=== PATIENT | female | born 1980 | race Caucasian/White ===

== ENCOUNTER 2016-09-09 12:28 | Emergency (ER) | payer OTHER ==
[~2016-09-09] VITALS: Ht 167.6 cm; Wt 76.7 kg
[2016-09-09] MEDS ORDERED: VARE1TA PO (13:07)
[2016-09-09] MEDS ORDERED: LYRI150C PO (13:07)
[2016-09-09] MEDS ORDERED: KETOROLAC 60 MG/2 ML VIAL (J1885) IM ONE (13:30)
--- NOTE | 2016-09-09 14:12 | REP ---
LEFT KNEE, FIVE VIEWS: HISTORY: Injury. There is no acute fracture or dislocation. The joint spaces are normal in appearance. IMPRESSION: There is no acute fracture or dislocation. Signed by Gold Ryan MD 09/09/2016 02:16 P
[2016-09-09] MEDS ORDERED: NORCOTAB PO ×2 (14:30→14:33)
[2016-09-09] MEDS ORDERED: NAPR500T PO (14:30)
[2016-09-09 14:36] VITALS: BP 144/80
== END 2016-09-09 14:44 | disposition home or self-care (01) ==
LOC: M ED 13:38
DX: M23.92 Unspecified internal derangement of left knee (principal); E11.9 Type 2 diabetes mellitus without complications; F41.9 Anxiety disorder, unspecified; F33.9 Major depressive disorder, recurrent, unspecified; Z79.899 Other long term (current) drug therapy; Z88.0 Allergy status to penicillin; Z88.8 Allergy status to other drugs, medicaments and biological substances; F17.210 Nicotine dependence, cigarettes, uncomplicated
CPT/HCPCS: 73564; 96372; 99283; J1885

== ENCOUNTER 2017-01-27 11:15 | Emergency (ER) | payer OTHER ==
[~2017-01-27] VITALS: Ht 167.6 cm; Wt 74.5 kg
[~2017-01-27 11:15] MED LIST: LYRI150C PO; NAPR500T PO; NORCOTAB PO; VARE1TA PO
[2017-01-27] MEDS ORDERED: CLIN150C14 PO (11:29)
[2017-01-27] MEDS ORDERED: CYMB1CAP5 PO (11:29)
[2017-01-27] MEDS ORDERED: VITA1TAB9 PO (11:29)
[2017-01-27] MEDS ORDERED: OMEP10CASR PO (11:29)
[2017-01-27 12:45] VITALS: BP 129/68
[2017-01-27 12:54] LABS: URIC ACID, BODY FLUID 2.5 MG/DL (NOT ESTABLISHED)
[2017-01-27 12:58] LABS: RBC BODY FLUID < 2000 10^3/uL (<2000)
[2017-01-27 13:10] LABS: WBC BODY FLUID 35880 /uL (0-10)
[2017-01-27 13:11] LABS: BF MONONUCLEAR CELL % 6.9 % (0-0); BF POLYMORPHONUCLEAR CELL % 93.1 % (0-0)
[2017-01-27 13:14] LABS: SYNOVIAL FLUID COLOR YELLOW (YELLOW)
[2017-01-27 13:15] LABS: BF DIFF IF INDICATED? YES (NO)
[2017-01-27 14:00] LABS: CRYSTALS, BODY FLUID NONE SEEN (NONE SEEN)
[2017-01-28] MEDS ORDERED: ESOMEPRAZOLE PO (06:34)
[2017-01-28] MEDS ORDERED: VARE05TA PO (06:34)
== END 2017-01-27 12:46 | disposition home or self-care (01) ==
LOC: M ED 11:15
DX: M25.562 Pain in left knee (principal); E11.9 Type 2 diabetes mellitus without complications; Z79.899 Other long term (current) drug therapy; Z88.0 Allergy status to penicillin; Z88.8 Allergy status to other drugs, medicaments and biological substances

== ENCOUNTER 2017-01-27 13:52 | Inpatient (IN) | payer OTHER ==
[~2017-01-27] VITALS: Ht 167.6 cm; Wt 76.6 kg
[~2017-01-27 13:52] MED LIST changes: +CLIN150C14 PO; +CYMB1CAP5 PO; +OMEP10CASR PO; +VITA1TAB9 PO
[2017-01-27] MEDS ORDERED: ONDANSETRON 4MG/2ML VIAL (J2405) IV PRN ×2 (15:45→19:45)
[2017-01-27 16:30] VITALS: BP 113/73
[2017-01-27 16:47] LABS: CONTROL LINE UCG INT CTR LINE PRESENT
--- NOTE | 2017-01-27 17:03 | HPEPDOC ---
General Date of Admission 01/27/2017 Attending Physician: JUDITH BUENO MD Chief Complaint The patient is a 36-year-old female admitted with a reason for visit of Left Knee Septic Arthritis. Source: Patient Exam Limitations: No limitations Timing/Duration: Week(s), Getting worse Severity: Moderate Associated Symptoms: Fever, Chills, Nausea, Vomiting History of Present Illness Patient is a 36 y/o female who is 3 months s/p L knee ACO reconstruction with MM repair DOS 05 November 2016. Patient had an uneventful postoperative course until 2 weeks ago when she noticed an increase in L knee pain, generalized nausea and vomiting, and some drainage from her medial tibial wound, which resolved spontaneously. She then developed increasing pain and erythema on the anterior aspect of the patients leg. She was given oral clindamycin 3 days ago and presented to my office for routine follow up. She had increased pain and swelling and went to the [facility] ER yesterday where she was given a dose of IV antibiotics and discharged home. Today, she reports worsening knee pain and swelling. Home Medications Scheduled (Vitamelts Vitamin D) 1,000 Unit Tab, 1,000 UNIT PO DAILY, (Reported) Clindamycin Hcl (Clindamycin HCl) 150 Mg Cap, 300 MG PO Q6H, (Reported) Duloxetine Hcl (Cymbalta) 30 Mg Cap, 30 MG PO DAILY, (Reported) Omeprazole (PriLOSEC) 10 Mg Capcr, 10 MG PO DAILY, (Reported) Varenicline (Chantix) 1 Mg Tab, 2 MG PO BID, (Reported) Scheduled PRN Acetaminophen/Hydrocodone ([place], Anexsia 5/325) 1 Tab Tab, 1 TAB PO Q6H PRN for PAIN Allergies Coded Allergies: Penicillins (Verified Allergy, Severe, anaphylaxis, 09/09/16) Gabapentin (Verified Allergy, Intermediate, hives, 09/09/16) Sertraline (Verified Allergy, Intermediate, seratonin syndrome, 01/27/17) Past Medical History Medical History Depression, Anxiety, GERD Surgical History L knee ACL reconstruction per HPI Ear surgery, Cholecystectomy appendectomy partial hysterectomy Social History * Smoker: Denies, current smoker Alcohol: Denies Drugs: denies Recent Travel/Sick Contacts: Denies: Recent travel, Recent sick contacts Psychosocial History: Anxiety, Depression Art student Review of Symptoms Constitutional: Reports: Chills, Fever, Malaise, Night Sweats, Weakness, Fatigue, Weight Loss, Lethargy, Other Eyes: Denies: Pain, Vision change, Conjunctivae inflammation, Eyelid inflammation, Redness, Other ENT: Denies: Head Aches, Ear Pain, Dysphagia, Sinus Congestion, Post Nasal Drip , Sore Throat, Epistaxis, Other Symptoms Skin: Denies: Rash, Lesions, Jaundice, Bruising, Itching, Dry, Breakdown, Nail Changes, Other Pulmonary: Denies: Dyspnea, Cough, Pleuritic Chest Pain, Other Symptoms Cardiovascular: Denies: Chest Pain, Palpitations, Orthopnea, Paroxysmal Noc. Dyspnea, Edema, Lt Headedness, Other Symptoms Gastrointestinal: Reports: Nausea, Vomiting, Abdominal Pain, Diarrhea, Constipation, Melena, Hematochezia, Other Symptoms Genitourinary: Denies: Dysuria, Frequency, Incontinence, Hematuria, Retention, Other Symptoms Hematologic: Denies: Bruising, Bleeding Excessively, Petecchia, Purpura, Enlarged Lymph Nodes, Other Hematologic Endocrine: Denies: Polydipsia, Polyphagia, Polyuria, Heat Intolerance, Cold Intolerance, Other Endocrine Sx Musculoskeletal: Reports: Neck Pain, Back Pain, Shoulder Pain, Arm Pain, Hand Pain, Leg Pain (L knee and leg pain per HPI), Foot Pain, Joint Pain, Muscle Pain , Spasms, Other Symptoms Neurological: Denies: Weakness, Numbness, Incoordination, Change in speech, Confusion, Seizures, Other Symptoms Psych: Denies: Mood Normal, Anxiety, Depression, Memory Issues, Thoughts of Self Harm, Anger, Thoughts of Harming Other, Other Psych Physical Examination General Exam: Positive: Alert, Cooperative, No Acute Distress Eye Exam: Positive: PERRLA ENT Exam: Positive: Atraumatic Chest Exam: Positive: Normal air movement Heart Exam: Positive: Rate Normal Extremity Exam: Positive: Tenderness (L knee exam demonstrates mild effusion. There is pain with axial load of the L knee. Pain with passive knee ROM. No drainage from wounds. ) Vital Signs T98.3 HR 74 RR 18 Laboratory Data Labs 24H Labs at [facility] from yesterday Jan 17: WBC 15.3 ESR 33 CRP 15 Knee aspirate today: WBC 57390, 93.1% PMNs Gram stain pending Assessment/Plan 36 y/o female with post op septic knee arthritis/surgical site infection Plan / VTE VTE Prophylaxis Ordered?: Yes Plan Plan Given the patients constellation of findings, namely increasing knee pain with pain with axial load and relatively high cell count with high differential, i discussed with the patient the risks, benefits, indications, and alternatives of observation versus operative arthroscopic irrigation and debridement with open I&D of medial tibial wound. The patient expressed understanding and provided informed consent for L knee I&D. She will be admitted for surgery tonight and remain in the hospital on IV antibiotics pending culture results. Diet: Make NPO Activity: Bedrest Anticipated Discharge: Home With Services JUDITH BUENO MD Jan 27, 2017 15:41
[2017-01-27] MEDS ORDERED: ROPIvacaine 0.5% 30 ML INJECTION (J2795) As Ordered ONE (17:12)
[2017-01-27] MEDS ORDERED: MIDAZOLAM INJ 2 MG/2 ML VIAL (J2250) As Ordered ONE (17:45)
[2017-01-27] MEDS ORDERED: LIDOCAINE 2% INJ 100 MG/5 ML SDV (FOR ANES.) As Ordered ONE (17:45)
[2017-01-27] MEDS ORDERED: PROPOFOL 200 MG/20 ML VIAL As Ordered ONE (17:45)
[2017-01-27] MEDS ORDERED: fentaNYL 100 MCG/2 ML INJECTION (J3010) As Ordered ONE ×3 (17:45→20:06)
[2017-01-27] MEDS ORDERED: ROCURONIUM BROMIDE 50 MG/5 ML VIAL/SYRINGE As Ordered ONE (17:46)
[2017-01-27] MEDS ORDERED: dexameTHASONE 4 MG/ML 1ML VIAL (J1100) As Ordered ONE (17:46)
[2017-01-27] MEDS ORDERED: SUCCINYLCHOLINE 100 MG/5 ML SYRINGE (J0330) As Ordered ONE (17:46)
[2017-01-27] MEDS ORDERED: VANCOMYCIN 1000 MG/20 ML VIAL (J3370) As Ordered ONE (17:49)
[2017-01-27] MEDS ORDERED: MEPERIDINE INJ 25 MG/ML VIAL (J2175) As Ordered ONE (19:30)
[2017-01-27] MEDS ORDERED: NORCO, ANEXSIA 5/325MG TABLET (HYDROcodone/ACETAMINOPHEN) PO PRN (19:45)
[2017-01-27] MEDS ORDERED: MEPERIDINE INJ 25 MG/ML VIAL (J2175) IV PRN (19:45)
[2017-01-27] MEDS ORDERED: LR 1,000 ML IV SCH (19:45)
[2017-01-27] MEDS: VANCOMYCIN HCL 1,000 MG, VIAL MATE ADAPTER 1 EACH in D5W 250 ML IV SCH (20:00)
[2017-01-27] MEDS ORDERED: PERCOCET 5MG/325MG TAB As Ordered ONE (20:00)
[2017-01-27] MEDS: fentaNYL 100 MCG/2 ML INJECTION (J3010) IV PRN ×2 (20:09→20:16)
--- NOTE | 2017-01-27 20:48 | RO ---
DATE OF PROCEDURE: 01/27/2017 PREPROCEDURE DIAGNOSIS: Left knee septic arthritis. POSTPROCEDURE DIAGNOSIS: Left knee septic arthritis. PROCEDURE: Left knee arthroscopic and open irrigation and debridement. SURGEON: Dr. Ricky Sanchez [employer] BROADCASTER: MERLYN Cox ANESTHESIA PROVIDER: Dr. Melchor ANESTHESIA GIVEN: General endotracheal anesthesia. ANTIBIOTICS: 1 gram of intravenous (IV) vancomycin given after cultures taken. MATERIALS SENT TO LAB: Medial tibial wound culture swab and intraarticular synovial tissue per culture. ESTIMATED BLOOD LOSS: 25 mL. COMPLICATIONS: None. INDICATION FOR PROCEDURE: Kaylee Monaco is a 36-year-old female who is 3 months status post left knee anterior cruciate ligament (ACL) reconstruction with allograft. Date of surgery was 11/05/2016. The patient had an uneventful postoperative course until approximately 2 weeks ago where she has had general malaise and increasing pain in the left lower extremity. She was seen a few days ago by another provider and placed on oral clindamycin. She was then seen by me in the office where she had increasing pain about the left knee. She had pain with axial load. She had pain with passive knee range of motion. She had an effusion. I obtained a synovial fluid sample and sent it to the lab and cell count was 36,000 white blood cells with 93% neutrophils. She had labs showing elevated erythrocyte sedimentation rate (ESR), C-reactive protein (CRP) and white count. Given this constellation of findings, I discussed with the patient the risks, benefits, indications and alternatives of operative versus nonoperative treatment of presumed septic arthritis and recommended operative irrigation and debridement. The patient expressed understanding with these findings and elected to proceed. Informed consent was obtained. INTRAOPERATIVE FINDINGS: Patient's exam under anesthesia revealed negative pivot-shift and a 2A Yousif with a solid endpoint. Diagnostic arthroscopy revealed extensive synovitis throughout the knee with anterior interval scarring. There was no purulence expressed from the medial tibial wound or from the knee joint. The anterior cruciate ligament (ACL) graft was mostly intact with some mild fraying of the anterior aspect of the graft. The meniscal repair appears to have healed. There were no new medial or lateral meniscal tears. There was some grade 2 chondromalacia on the lateral tibial plateau. No other focal cartilaginous defects. There was significant scarring and synovitis in the medial gutter, lateral gutter and suprapatellar pouch. DESCRIPTION OF PROCEDURE: The patient was positively identified in the preoperative holding area. The surgical site was marked. She was then brought to the operating room where she was placed under general endotracheal anesthesia. I then performed the exam under anesthesia with the above noted findings. She was then prepped and draped in the usual sterile fashion. A final time-out was performed. I began by making an incision over the medial proximal tibial over the previous graft insertion site, dissected through the skin and subcutaneous tissue and identified the deep fascial layer. No purulence was expressed in this layer. Culture swabs were taken and sent to the lab for aerobic and anaerobic cultures from this wound. I then thoroughly irrigated this wound with normal saline, closed the incision with simple interrupted nylon suture and then placed an occlusive dressing over this area in preparation for irrigation and debridement of the joint. Everybody put on clean gloves and then a fresh knife was used to go through the previous lateral arthroscopy portal. I then identified a large amount of anterior interval scarring. I then used a combination of shaver and electrocautery to debride some of the anterior interval scarring for visualization. I performed the diagnostic arthroscopy with above findings. There was significant synovitis throughout the entire knee. Samples of synovial tissue were taken with a pituitary rongeur and sent to the lab for a tissue culture. I then performed a synovectomy using a combination of shaver and cautery. After completion of the synovectomy, approximately 12 liters of saline was irrigated through the knee. Final arthroscopic photos were taken, instruments were removed, the effusion was evacuated. The arthroscopy portals were closed with simple interrupted nylon suture. Sterile dressings were applied. This ended the procedure. I was present and scrubbed in for all critical portions of the case. POSTOPERATIVE PLAN: The patient will be admitted to the hospital for IV antibiotics. Infectious disease service will be consulted. The patient will remain on IV antibiotics pending culture results and will be discharged home when antibiotic regimen has been determined. DINO
[2017-01-27 20:50] VITALS: BP 124/66
[2017-01-27 21:20] VITALS: BP 121/71
[2017-01-27 21:50] VITALS: BP 116/61
[2017-01-27] MEDS: DOCUSATE SODIUM 100 MG CAP PO SCH (22:16)
[2017-01-27] MEDS: KETOROLAC 30 MG/ML VIAL (J1885) IV PRN (22:16)
[2017-01-27 22:40] LABS: CREATININE FOR GFR 0.63 MG/DL (0.55-1.02); GLOMERULAR FILTRATION RATE > 60.0 (>60)
[2017-01-27 23:00] VITALS: BP 128/57
[2017-01-28] VITALS (8 sets, daily range): BP systolic 105–116; BP diastolic 54–62
[2017-01-28] MEDS: PERCOCET 5MG/325MG TAB PO PRN ×4 (02:11→20:36)
[2017-01-28] MEDS: VANCOMYCIN HCL 1,000 MG, VIAL MATE ADAPTER 1 EACH in D5W 250 ML IV SCH ×3 (04:15→20:36)
[2017-01-28] MEDS ORDERED: VARE05TA PO (06:34)
[2017-01-28] MEDS ORDERED: ESOMEPRAZOLE PO (06:34)
[2017-01-28] MEDS: ENOXAPARIN 40 MG/0.4 ML SYRINGE (J1650) SC SCH (09:30)
[2017-01-28] MEDS: DOCUSATE SODIUM 100 MG CAP PO SCH ×2 (09:30→20:36)
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
--- NOTE | 2017-01-28 15:22 | REP ---
PICC LINE INSERTION: The patient was referred for PICC line insertion. Informed consent was obtained. Under sterile conditions and after satisfactory administration of local anesthesia, using guidance from the [facility] [place] ultrasound device, access to the right basilic vein is obtained. Over a wire, a single lumen PICC line is inserted and the tip is positioned in the superior vena cava using fluoroscopy. The wire was removed and hemostasis obtained with no immediate complication. 0.1 minutes fluoroscopy time utilized. Signed by Burton Lindsey MD 01/31/2017 09:53 A
--- NOTE | 2017-01-28 16:49 | IPNPDOC ---
Date Seen The patient was seen on 01/28/17. Progress Note SUBJECTIVE: Patient is a 36-year-old female POD1 s/p L knee I&D for septic arthritis s/p ACL reconstruction 05 Nov 2016. Patient seen and examined at bedside. No acute overnight events. Patient feels much better today and has felt better since immediately after surgery. She Has had a PICC line placed. No acute overnight events. OBJECTIVE PHYSICAL EXAMINATION: VITAL SIGNS: Please see below. GENERAL: Well nourished female, NAD HEENT: Normocephalic, atraumatic CARDIOVASCULAR: 2+ DP/PT pulse, BCR all digits LLE. RESPIRATORY: non-labored breathing. EXTREMITIES: L knee dressing in place, c/d/i. Patient with knee ROM 0-90. No pain with axial load. Able to perform SLR without pain. MICROBIOLOGY: Please see below. DVT prophylaxis ordered?: Lovenox ASSESSMENT: This is a 36 y/o female POD1 s/p L knee I&D feeling much better PLAN: -Continue IV vancomycin, appreciate ID recommendations -Will continue to follow cultures -WBAT LLE -May ambulate without assistance -PT for ambulation -PICC placed, will likely discharge home Tuesday after abx regimen has been determined -CRP tomorrow to evaluate response to treatment VS, I&O, 24H, Fishbone Vital Signs/I&O Vital Signs Date Time Temp Pulse Resp B/P (MAP) Pulse Ox O2 Delivery O2 Flow Rate FiO2 01/28/17 16:00 98.3 84 18 112/59 (76) 99 Room Air 01/27/17 19:27 2 I&O- Last 24 Hours up to 6 AM 01/29/17 06:00 Intake Total 480 ml Output Total 400 ml Balance 80 ml Laboratory Data 24H LABS Laboratory Tests 2 01/27/17 21:56: Glomerular Filtration Rate > 60.0 CBC/BMP Laboratory Tests 01/27/17 21:56 Microbiology Microbiology 01/28/17 MRSA Screen, Received Pending 01/27/17 Wound Culture, Received Pending 01/27/17 Anaerobic Culture, Received Pending 01/27/17 Wound Culture, Received Pending 01/27/17 Anaerobic Culture, Received Pending JUDITH BUENO MD Jan 28, 2017 16:49
--- NOTE | 2017-01-28 21:56 | CR ---
DATE OF CONSULTATION: 01/28/2017 Asked to consult by Dr. Sanchez for evaluation of septic arthritis. This is an addendum to the consultation done by ID resident, Dr. Victor . The patient was admitted on January 27 with left knee septic arthritis. She underwent an arthroscopic irrigation and debridement of the left knee after she was diagnosed with septic arthritis. The patient had undergone a left knee anterior cruciate ligament reconstruction with allograft on 11/05/2016. She had an uneventful course until about 2 weeks prior to admission, when she developed some drainage and swelling from the inferior aspect of the knee. She was seen by her doctor on Tuesday. Culture was not done, but she was started on clindamycin on January 24, she took for a couple of days. On January 26 she went to the emergency room at [facility] with a fever of 103.5 and was given intravenous (IV) antibiotics. She was seen the morning of admission by Dr. Sanchez, who admitted her for an incision and drainage. He had obtained synovial fluid sample that had 36,000 white cells with 93% neutrophils. She had an elevated sedimentation rate and C-reactive protein (CRP), and therefore a diagnosis of septic arthritis was made, and the patient was admitted to the hospital. She has been started on IV vancomycin after incision and drainage cultures are still pending from last night. The patient feels better. The plan will be to treat her for septic arthritis for total of 3-4 weeks of IV antibiotics. Depending on results of culture, if Staphylococcus aureus, it would be a total of 4 weeks. If other than Staphylococcus aureus, a total of 3 weeks. A peripherally inserted central catheter (PICC) line was ordered. The patient has a vague history of a facial abscess about a year ago that was not cultured, and methicillin-resistant Staphylococcus aureus (MRSA) screen will be done as well to see if she is MRSA colonized. Thank you for consultation. Monitor complete blood count (CBC), basic, CRP, vancomycin trough weekly as an outpatient. Will consult [facility] for home IV antibiotics once I have an idea of what IV antibiotic she will be on. [facility] CENTERAziza
[2017-01-29 04:00] VITALS: BP 115/57
[2017-01-29] MEDS: VANCOMYCIN HCL 1,000 MG, VIAL MATE ADAPTER 1 EACH in D5W 250 ML IV SCH ×3 (04:00→20:08)
[2017-01-29] MEDS: PERCOCET 5MG/325MG TAB PO PRN ×4 (05:32→19:06)
[2017-01-29] MEDS: SODIUM CHLORIDE 0.9% INJ 10 ML SYR IV SCH ×2 (05:59→18:13)
[2017-01-29 06:33] LABS: BASO # 0.1 10^3/uL (0.0-0.2); BASO % 0.8 % (0.0-1.0); IMMATURE GRANULOCYTE % 0.3 % (0-0); LYMPH # 2.5 10^3/uL (1.5-4.5); LYMPH % 33.2 % (24.0-44.0); MEAN CORPUSCULAR HEMOGLOBIN 32.6 pg (27.0-33.0); MEAN CORPUSCULAR HGB CONC 34.9 g/dl (32.0-36.5); MEAN CORPUSCULAR VOLUME 93.2 fl (80.0-96.0); MONO # 0.6 10^3/uL (0.0-0.8); MONO % 7.6 % (0.0-5.0); NEUTROPHILS # 4.4 10^3/uL (1.8-7.7); NEUTROPHILS % 58.1 % (36.0-66.0); PLATELET COUNT, AUTOMATED 251 10^3/uL (150-450); RED CELL DISTRIBUTION WIDTH 11.9 % (11.5-14.5); WHITE BLOOD COUNT 7.5 10^3/uL (4.0-10.0)
[2017-01-29 06:44] LABS: ANION GAP 4 MEQ/L (8-16); BLOOD UREA NITROGEN 5 MG/DL (7-18); CALCIUM LEVEL 8.3 MG/DL (8.5-10.1); CARBON DIOXIDE LEVEL 29 MEQ/L (21-32); CHLORIDE LEVEL 108 MEQ/L (98-107); CREATININE FOR GFR 0.65 MG/DL (0.55-1.02); GLOMERULAR FILTRATION RATE > 60.0 (>60); GLUCOSE, FASTING 82 MG/DL (70-105); POTASSIUM SERUM 3.5 MEQ/L (3.5-5.1); SODIUM LEVEL 141 MEQ/L (136-145)
[2017-01-29 06:53] LABS: ERYTHROCYTE SEDIMENTATION RATE 31 mm/hr (0-20)
[2017-01-29 08:00] VITALS: BP 113/60
[2017-01-29] MEDS: CHANTIX STARTER PACK PO SCH ×2 (09:43→20:08)
[2017-01-29] MEDS: DOCUSATE SODIUM 100 MG CAP PO SCH ×2 (09:43→20:07)
[2017-01-29] MEDS: ENOXAPARIN 40 MG/0.4 ML SYRINGE (J1650) SC SCH (09:44)
--- NOTE | 2017-01-29 12:39 | IPNPDOC ---
Date Seen The patient was seen on 01/29/17. Progress Note SUBJECTIVE: Patient is a 36-year-old female POD2 s/p L knee I&D for septic arthritis s/p ACL reconstruction 05 Nov 2016. Patient seen and examined at bedside. No acute overnight events. Pain well controlled. She Has had a PICC line placed yesterday. No complaints. OBJECTIVE PHYSICAL EXAMINATION: VITAL SIGNS: Please see below. GENERAL: Well nourished female, NAD HEENT: Normocephalic, atraumatic CARDIOVASCULAR: 2+ DP/PT pulse, BCR all digits LLE. RESPIRATORY: non-labored breathing. EXTREMITIES: L knee dressing in place, c/d/i. Patient with knee ROM 0-90. No pain with axial load. Able to perform SLR without pain. MICROBIOLOGY: Please see below. Cultures finalized NGTD CRP downtrending. 0.5 today DVT prophylaxis ordered?: Lovenox ASSESSMENT: This is a 36 y/o female POD2 s/p L knee I&D with culture negative septic knee arthritis. PLAN: -Continue IV vancomycin, appreciate ID recommendations regarding type and duration of abx treatment -WBAT LLE -May ambulate without assistance -PT for ambulation -PICC placed, will likely discharge home Tuesday after abx regimen has been determined VS, I&O, 24H, Fishbone Vital Signs/I&O Vital Signs Date Time Temp Pulse Resp B/P (MAP) Pulse Ox O2 Delivery O2 Flow Rate FiO2 01/29/17 10:20 18 01/29/17 08:00 98.9 73 113/60 (77) 95 Room Air 01/27/17 19:27 2 Laboratory Data 24H LABS Laboratory Tests 2 01/29/17 06:02: Immature Granulocyte % (Auto) 0.3H, White Blood Count 7.5, Red Blood Count 3.10L , Hemoglobin 10.1L, Hematocrit 28.9L, Mean Corpuscular Volume 93.2, Mean Corpuscular Hemoglobin 32.6, Mean Corpuscular Hemoglobin Concent 34.9, Red Cell Distribution Width 11.9, Platelet Count 251, Neutrophils (%) (Auto) 58.1, Lymphocytes (%) (Auto) 33.2, Monocytes (%) (Auto) 7.6H, Eosinophils (%) (Auto) 0.0, Basophils (%) (Auto) 0.8, Neutrophils # (Auto) 4.4, Lymphocytes # (Auto) 2.5, Monocytes # (Auto) 0.6, Eosinophils # (Auto) 0.0, Basophils # (Auto) 0.1, Immature Granulocyte # (Auto) 0.0, Nucleated Red Blood Cells % (auto) 0.0, Erythrocyte Sedimentation Rate 31H, Anion Gap 4L, Glomerular Filtration Rate > 60.0, Blood Urea Nitrogen 5L, Creatinine 0.65, Sodium Level 141, Potassium Level 3.5, Chloride Level 108H, Carbon Dioxide Level 29, Calcium Level 8.3L, C- Reactive Protein, Quantitative 0.50H 01/29/17 11:19: Vancomycin Level Trough 13.0 CBC/BMP Laboratory Tests 01/29/17 06:02 Red Blood Count 3.10 L, Mean Corpuscular Volume 93.2, Mean Corpuscular Hemoglobin 32.6, Mean Corpuscular Hemoglobin Concent 34.9, Red Cell Distribution Width 11.9, Neutrophils (%) (Auto) 58.1, Lymphocytes (%) (Auto) 33.2, Monocytes (%) (Auto) 7.6 H, Eosinophils (%) (Auto) 0.0, Basophils (%) ( Auto) 0.8, Neutrophils # (Auto) 4.4, Lymphocytes # (Auto) 2.5, Monocytes # (Auto ) 0.6, Eosinophils # (Auto) 0.0, Basophils # (Auto) 0.1, Calcium Level 8.3 L Microbiology Microbiology 01/28/17 MRSA Screen, Received Pending 01/27/17 Wound Culture - Final, Complete 01/27/17 Anaerobic Culture - Final, Complete 01/27/17 Wound Culture - Final, Complete 01/27/17 Anaerobic Culture - Final, Complete JUDITH BUENO MD Jan 29, 2017 12:39
[2017-01-29] MEDS: SODIUM CHLORIDE 0.9% INJ 10 ML SYR IV PRN (12:58)
[2017-01-29 15:20] VITALS: BP 107/60
[2017-01-29 20:00] VITALS: BP 113/58
[2017-01-29] MEDS: VANCOMYCIN HCL 500 MG in D5W MINI-BAG PLUS 100 ML IV SCH (21:30)
[2017-01-30 04:30] VITALS: BP 116/58
[2017-01-30] MEDS: PERCOCET 5MG/325MG TAB PO PRN ×3 (05:57→20:54)
[2017-01-30] MEDS: SODIUM CHLORIDE 0.9% INJ 10 ML SYR IV SCH ×2 (05:57→17:13)
[2017-01-30 06:17] LABS: MEAN CORPUSCULAR HEMOGLOBIN 32.4 pg (27.0-33.0); MEAN CORPUSCULAR VOLUME 92.7 fl (80.0-96.0); PLATELET COUNT, AUTOMATED 263 10^3/uL (150-450); RED CELL DISTRIBUTION WIDTH 11.9 % (11.5-14.5); WHITE BLOOD COUNT 6.9 10^3/uL (4.0-10.0)
[2017-01-30 08:00] VITALS: BP 101/51
[2017-01-30] MEDS: DOCUSATE SODIUM 100 MG CAP PO SCH ×2 (08:48→20:54)
[2017-01-30] MEDS: CHANTIX STARTER PACK PO SCH ×2 (08:48→20:55)
[2017-01-30] MEDS: ENOXAPARIN 40 MG/0.4 ML SYRINGE (J1650) SC SCH (08:50)
[2017-01-30] MEDS: VANCOMYCIN HCL 1,000 MG, VIAL MATE ADAPTER 1 EACH in D5W 250 ML IV SCH (08:50)
[2017-01-30] MEDS: VANCOMYCIN HCL 500 MG in D5W MINI-BAG PLUS 100 ML IV SCH (10:08)
[2017-01-30] MEDS: KETOROLAC 30 MG/ML VIAL (J1885) IV PRN (11:32)
[2017-01-30] MEDS: SODIUM CHLORIDE 0.9% INJ 10 ML SYR IV PRN (11:36)
--- NOTE | 2017-01-30 13:21 | IPNPDOC ---
Date Seen The patient was seen on 01/30/17. Progress Note SUBJECTIVE: Patient is a 36-year-old female POD3 s/p L knee I&D for septic arthritis s/p ACL reconstruction 05 Nov 2016. Patient seen and examined at bedside. No acute overnight events. Pain well controlled. No complaints. OBJECTIVE PHYSICAL EXAMINATION: VITAL SIGNS: Please see below. GENERAL: Well nourished female, NAD HEENT: Normocephalic, atraumatic CARDIOVASCULAR: 2+ DP/PT pulse, BCR all digits LLE. RESPIRATORY: non-labored breathing. EXTREMITIES: L knee dressing removed, wounds c/d/i. Patient with knee ROM 0-90. No pain with axial load. Able to perform SLR in terminal extension without pain. Previous cellulitis decreased on anterior leg. Minimal tenderness over wounds. Minimal effusion. MICROBIOLOGY: Please see below. Cultures finalized NGTD MRSA nasal swab negative CRP downtrending. 0.5 yesterday from 1.5 at [facility] DVT prophylaxis ordered?: Lovenox ASSESSMENT: This is a 36 y/o female POD3 s/p L knee I&D with culture negative septic knee arthritis. PLAN: -Discussed with Dr. Dobbs from infectious disease. Will discharge home on IV daptomycin 500mg IV once daily for culture negative septic knee arthritis for 21 day duration. -Switched vancomycin to daptomycin while in house -PFS consult placed for IV abx infusion -WBAT LLE -May ambulate without assistance -PT for ambulation -Discharge home tomorrow after IV home infusion has been set up VS, I&O, 24H, Fishbone Vital Signs/I&O Vital Signs Date Time Temp Pulse Resp B/P (MAP) Pulse Ox O2 Delivery O2 Flow Rate FiO2 01/30/17 11:30 18 01/30/17 08:00 99.4 75 101/51 (68) 96 Room Air 01/27/17 19:27 2 I&O- Last 24 Hours up to 6 AM 01/31/17 06:00 Intake Total 720 ml Output Total 400 ml Balance 320 ml Laboratory Data 24H LABS Laboratory Tests 2 01/30/17 06:02: Nucleated Red Blood Cells % (auto) 0.0 CBC/BMP Laboratory Tests 01/30/17 06:02 Red Blood Count 3.30 L, Mean Corpuscular Volume 92.7, Mean Corpuscular Hemoglobin 32.4, Mean Corpuscular Hemoglobin Concent 35.0, Red Cell Distribution Width 11.9 Microbiology Microbiology 01/28/17 MRSA Screen - Final, Complete 01/27/17 Wound Culture - Final, Complete 01/27/17 Anaerobic Culture - Final, Complete 01/27/17 Wound Culture - Final, Complete 01/27/17 Anaerobic Culture - Final, Complete JUDITH BUENO MD Jan 30, 2017 13:21
[2017-01-30] MEDS: DAPTOmycin 500 MG in NS 50 ML IV SCH (16:27)
[2017-01-30 20:00] VITALS: BP 104/57
[2017-01-31 04:00] VITALS: BP 108/61
[2017-01-31] MEDS: SODIUM CHLORIDE 0.9% INJ 10 ML SYR IV SCH (06:15)
[2017-01-31] MEDS: PERCOCET 5MG/325MG TAB PO PRN ×2 (06:18→14:56)
[2017-01-31 09:00] VITALS: BP 94/49
[2017-01-31] MEDS: DOCUSATE SODIUM 100 MG CAP PO SCH (09:16)
[2017-01-31] MEDS: CHANTIX STARTER PACK PO SCH (09:16)
[2017-01-31] MEDS: DAPTOmycin 500 MG in NS 50 ML IV SCH (15:04)
--- NOTE | 2017-01-31 16:50 | DS.PDOC ---
Discharge Summary General Date of Admission Jan 27, 2017 at 16:03 Date of Discharge 01/31/2017 Attending Physician: JUDITH BUENO MD Specialist/Consultants Involve: Leonard Dobbs MD Discharge Summary PROCEDURES PERFORMED DURING STAY: Left knee irrigation and debridement 27 Jan 2017. ADMITTING DIAGNOSES: 1. Left knee septic arthritis DISCHARGE DIAGNOSES: 1. Left knee septic arthritis COMPLICATIONS/CHIEF COMPLAINT: Left Knee Septic Arthritis. HISTORY OF PRESENT ILLNESS: Patient is a 36 y/o female who is 3 months s/p L knee ACL reconstruction with allograft DOS 05 November 2016. Patient presented with 2 weeks of increasing left knee pain, swelling, and difficulty with weight bearing with generalized malaise, nausea, and vomiting. She had elevated inflammatory markers at the ER of [facility] the day before admission. A knee aspirate on the day of admission demonstrated 36,000 WBC with 93.1% neutrophils. Given the constellation of symptoms, we discussed treatment options and I recommended irrigation and debridement of the left knee and patient elected to proceed. HOSPITAL COURSE: She was admitted on the day of surgery and underwent uneventful arthroscopic and open irrigation and debridement. She was admitted to the hospital winter for IV antibiotics awaiting culture results. During the hospitalization, she had significant clinical improvement with normalization of her CRP within 2 days of procedure. Cultures were negative, however this was confounded by being on antibiotics prior to admission. She was discharged home on POD4 with IV daptomycin for a 3 week course based on infectious disease service recommendations. DISCHARGE MEDICATIONS: Please see below. ALLERGIES: Please see below. PHYSICAL EXAMINATION ON DISCHARGE: VITAL SIGNS: Please see below. GENERAL: Well nourished female, no acute distress CARDIOVASCULAR EXAMINATION: 2+ DP/PT pulse LLE RESPIRATORY EXAMINATION: non labored breathing EXTREMITIES: L knee exam with well healed wounds, c/d/i. Minimal effusion. No pain with Axial load. Active ROM 0-100 pain free. LABORATORY DATA: Please see below. IMAGING: none PROGNOSIS: good ACTIVITY: [As tolerated]. DIET: regular DISCHARGE PLAN: Home with 3 weeks IV daptomycin DISPOSITION: Home Health Service. Vital Signs/I&Os Vital Signs Date Time Temp Pulse Resp B/P (MAP) Pulse Ox O2 Delivery O2 Flow Rate FiO2 01/31/17 14:56 18 01/31/17 09:00 98.3 72 94/49 (64) 98 Room Air 01/27/17 19:27 2 I&O- Last 24 Hours up to 6 AM 02/01/17 06:00 Intake Total 480 ml Output Total 1100 ml Balance -620 ml Microbiology Microbiology 01/28/17 MRSA Screen - Final, Complete 01/27/17 Wound Culture - Final, Complete 01/27/17 Anaerobic Culture - Final, Complete 01/27/17 Wound Culture - Final, Complete 01/27/17 Anaerobic Culture - Final, Complete Discharge Medications Scheduled (Vitamelts Vitamin D) 1,000 Unit Tab, 1,000 UNIT PO DAILY, (Reported) Duloxetine Hcl (Cymbalta) 30 Mg Cap, 30 MG PO DAILY, (Reported) Varenicline (Chantix) 0.5 Mg Tab, 0.5 MG PO DAILY, (Reported) [Esomeprazole] , 20 MG PO BID, (Reported) Allergies Coded Allergies: Penicillins (Verified Allergy, Severe, anaphylaxis, 09/09/16) Gabapentin (Verified Allergy, Intermediate, hives, 09/09/16) Sertraline (Verified Allergy, Intermediate, seratonin syndrome, 01/27/17) JUDITH BUENO MD Jan 31, 2017 16:50
--- NOTE | 2017-01-31 17:22 | IPN ---
DATE: 01/31/2017 Kaylee is anxious to go home. She feels much better. She has had no fever or chills. No nausea, vomiting or diarrhea. No myalgias. She received the first 48 hours vancomycin Yesterday, she was switched to daptomycin. She received 2 days of daptomycin without any side effects. Knee pain has markedly improved. LABORATORY DATA: White count is 6.9, hemoglobin 10.7, hematocrit 30.6, platelets 263. ESR 31. Sodium 141, potassium 3.5, chloride 108, bicarbonate 29, BUN 5, creatinine 0.65, glucose 82, calcium 8.3, CRP 0.5. Microbiology: Joint fluid on 01/27/2017: Had a few staph epidermidis, only resistant to penicillin G. IMPRESSION: Left knee septic arthritis with Staphylococcus epidermidis, on intravenous (IV) daptomycin, doing much better, status post incision and drainage (I and D). PLAN: Continue IV daptomycin for a total of 21 days. Prescriptions have been written. [employer] will be the infusion company. The patient will have blood work monitored weekly with a CBC, basic profile, CRP and CPK. The patient was advised on risk of renal disease and myalgias from daptomycin. Peripherally inserted central catheter (PICC) line has been placed without complications. The patient to be discharged home today.
== END 2017-01-31 16:10 | disposition home health service (06) | DRG 863 ==
LOC: M PED 16:03
PROVIDERS: ADMIT Orthopaedic Surgery; ATTEND Orthopaedic Surgery
PROC: 0SBD0ZX Excision of Left Knee Joint, Open Approach, Diagnostic (ICD-10-PCS; principal; 2017-01-27 14:13)
PROC: 02HV33Z Insertion of Infusion Device into Superior Vena Cava, Percutaneous Approach (ICD-10-PCS; 2017-01-28)
DX: T81.4XXA Infection following a procedure, initial encounter (principal); M00.862 Arthritis due to other bacteria, left knee; F32.9 Major depressive disorder, single episode, unspecified; K21.9 Gastro-esophageal reflux disease without esophagitis; F17.210 Nicotine dependence, cigarettes, uncomplicated; F41.9 Anxiety disorder, unspecified; Z79.899 Other long term (current) drug therapy; Z88.0 Allergy status to penicillin; Z88.8 Allergy status to other drugs, medicaments and biological substances; Z90.49 Acquired absence of other specified parts of digestive tract; Z90.711 Acquired absence of uterus with remaining cervical stump; Y82.9 Unspecified medical devices associated with adverse incidents

== ENCOUNTER → 2017-02-21 | Outpatient (REF) | payer OTHER ==
[~2017-02-21] MED LIST changes: +ESOMEPRAZOLE PO; +VARE05TA PO
[2017-02-21 15:42] LABS: BASO # 0.1 10^3/uL (0.0-0.2); BASO % 0.5 % (0.0-1.0); EOS % 0.2 % (0.0-3.0); IMMATURE GRANULOCYTE % 0.2 % (0-0); LYMPH # 1.7 10^3/uL (1.5-4.5); LYMPH % 17.2 % (24.0-44.0); MEAN CORPUSCULAR HEMOGLOBIN 31.4 pg (27.0-33.0); MEAN CORPUSCULAR HGB CONC 34.1 g/dl (32.0-36.5); MEAN CORPUSCULAR VOLUME 91.9 fl (80.0-96.0); MONO # 0.6 10^3/uL (0.0-0.8); MONO % 6.2 % (0.0-5.0); NEUTROPHILS # 7.4 10^3/uL (1.8-7.7); NEUTROPHILS % 75.7 % (36.0-66.0); PLATELET COUNT, AUTOMATED 345 10^3/uL (150-450); RED CELL DISTRIBUTION WIDTH 11.8 % (11.5-14.5); WHITE BLOOD COUNT 9.7 10^3/uL (4.0-10.0)
[2017-02-21 15:57] LABS: ANION GAP 6 MEQ/L (8-16); BLOOD UREA NITROGEN 4 MG/DL (7-18); CARBON DIOXIDE LEVEL 29 MEQ/L (21-32); CHLORIDE LEVEL 104 MEQ/L (98-107); GLOMERULAR FILTRATION RATE > 60.0 (>60); GLUCOSE, FASTING 73 MG/DL (70-105); POTASSIUM SERUM 4.4 MEQ/L (3.5-5.1); SODIUM LEVEL 139 MEQ/L (136-145)
[2017-02-21 16:21] LABS: ERYTHROCYTE SEDIMENTATION RATE 36 mm/hr (0-20)
== END ==
LOC: M LAB REF 15:28
PROVIDERS: ATTEND Internal Medicine Infectious Disease
DX: M00.862 Arthritis due to other bacteria, left knee (principal)